=== PATIENT | female | born 1955 | race Caucasian/White ===

== ENCOUNTER 2019-09-15 16:03 | Inpatient (IN) | payer MEDICARE, OTHER ==
[~2019-09-15] VITALS: Ht 157.5 cm; Wt 121.2 kg
[2019-09-15 16:26] LABS: BASO % 0.5 % (0.0-2.0); EOS # 0.2 (0.0-0.7); EOS % 2.9 % (0-4.0); GRAN % 74.9 % (42.2-75.2); LYMPH # 1.1 (1.2-3.4); LYMPH % 14.1 % (20.0-51.0); MEAN CELL VOLUME 83 fl (80.0-100.0); MEAN CORPUSCULAR HGB CONC 31 g/dl (33.0-37.0); MEAN PLATELET VOLUME 9.2 fl (7.4-10.4); MONO # 0.6 (0.1-0.6); PLATELET COUNT 187 K/mm3 (130-400); RED BLOOD COUNT 3.85 M/mm3 (4.10-5.30); REDCELL DISTRIBUTION WIDTH-CV 15.7 % (11.5-14.5)
[2019-09-15] MEDS ORDERED: GLUCOPHAGE1000 MG PO (16:37)
[2019-09-15 16:38] LABS: ALBUMIN 3.7 gm/dL (3.5-5.0); BILIRUBIN,TOTAL 0.3 mg/dL (0.0-1.0); CALCIUM 8.8 mg/dL (8.4-10.2); CREATININE, serum 2.72 (0.52-1.25); POTASSIUM 3.4 mmol/L (3.4-5.0); TOTAL PROTEIN 7.2 gm/dL (6.4-8.2)
[2019-09-15] MEDS ORDERED: NORVASC 10MG10 MG PO (16:38)
[2019-09-15] MEDS ORDERED: PRINZIDE 12.5 M1 TA1 (16:38)
[2019-09-15] MEDS ORDERED: PROZAC 20MG20 MG PO (16:39)
[2019-09-15] MEDS ORDERED: PRILOSEC 20MG20 MG PO (16:39)
[2019-09-15] MEDS ORDERED: ASPIRIN 81M81 MG/TA2 PO (16:39)
[2019-09-15] MEDS ORDERED: NOVOLIN N100 U/ML (16:40)
[2019-09-15] MEDS ORDERED: NOVOLIN R100 U/ML (16:40)
[2019-09-15 16:46] LABS: HEMATOCRIT 32.1 % (37.0-47.0); HEMOGLOBIN 9.8 g/dl (12.5-16.0); MEAN CORPUSCULAR HEMOGLOBIN 25 pg (27.0-31.0)
[2019-09-15 16:49] LABS: TROPONIN-I 0.033 ng/mL (0.000-0.035)
[2019-09-15 19:08] LABS: PROTHROMBIN TIME 11.4 SECONDS (9.7-12.8)
[2019-09-15 19:11] LABS: MAGNESIUM 1.9 mg/dL (1.6-2.3); PHOSPHOROUS 4.6 mg/dL (2.5-4.5)
[2019-09-15 22:10] VITALS: BP 183/77; PULSE 93; TEMP 98.2
[2019-09-15 22:44] LABS: C-REACTIVE PROTEIN 1.7 mg/dL (0.0-0.9)
[2019-09-15 22:49] VITALS: BP 174/75; PULSE 89; TEMP 98.6
[2019-09-15 22:57] LABS: TROPONIN-I 0.043 ng/mL (0.000-0.035)
[2019-09-15 23:12] LABS: THYROID STIMULATING HORMONE 4.08 uIU/mL (0.465-4.680)
[2019-09-15 23:41] VITALS: BP 163/69; PULSE 87; TEMP 98
--- NOTE | 2019-09-16 00:54 | NUR ---
Patient arrived to the floor at 2100. Admission assessment and med rec completed. Potassium replacement completed by effer-k per orders. Patient requested something to eat and a sandwich box was provided after blood glucose was taken. UA collected and sent to lab. Blood pressure noted to be 174/75 with heart rate of 89 at about 2200. Critical troponin called to this nurse at 0.043 and this was relayed to Grace Morillo APRN. She stated this was expected and to given hydralazine for high blood pressure. This was given. Blood pressure after medication was 163/69. Patient denies pain. Currently sitting on the edge of the bed watching a program on her phone. Denies any further needs. Will continue to monitor.
[2019-09-16 02:36] LABS: POTASSIUM 3.2 mmol/L (3.4-5.0)
[2019-09-16 02:38] LABS: MUCOUS Present /lpf; PH 5 (5-8); SQUAMOUS EPITHELIAL 0-2 /hpf; URINE APPEARANCE Clear; URINE BACTERIA None Seen /hpf; URINE BILIRUBIN Negative (NEGATIVE); URINE BLOOD 1+ (NEGATIVE); URINE COLOR Straw; URINE GLUCOSE 1+ (NEGATIVE); URINE KETONE Negative (NEGATIVE); URINE LEUKOCYTE ESTERASE Negative (NEGATIVE); URINE NITRATE Negative (NEGATIVE); URINE PROTEIN(semi-quant) 2+ (NEGATIVE); URINE RBC 0-2 /hpf; URINE UROBILINOGEN Negative (NEGATIVE)
[2019-09-16 02:39] LABS: COLLECTION METHOD CLEAN CATCH
[2019-09-16 02:53] LABS: TROPONIN-I 0.036 ng/mL (0.000-0.035)
[2019-09-16 04:06] VITALS: BP 148/76; PULSE 83; TEMP 97.5
--- NOTE | 2019-09-16 08:00 | NUR ---
Assessment complete. Pt sitting up on side of bed, A&O x 4. Breath sounds CTAB, slightly diminished to bases bilat. BS active x 4. Pt denies pain at this time. Saline lock IV to left inner wrist without s/s of complications. 3+ edema to bilat lower ext with small abrasion to right guerra. No further needs reported. Call light in reach.
[2019-09-16 08:26] VITALS: BP 155/72; PULSE 87; TEMP 97.9
[2019-09-16 08:29] LABS: BASO % 0.4 % (0.0-2.0); EOS # 0.2 (0.0-0.7); EOS % 2.9 % (0-4.0); GRAN # 5.1 (1.4-6.5); GRAN % 75.7 % (42.2-75.2); LYMPH # 0.9 (1.2-3.4); LYMPH % 12.5 % (20.0-51.0); MEAN CELL VOLUME 83 fl (80.0-100.0); MEAN CORPUSCULAR HGB CONC 31 g/dl (33.0-37.0); MEAN PLATELET VOLUME 9.7 fl (7.4-10.4); MONO # 0.5 (0.1-0.6); MONO % 7.8 % (1.7-9.3); PLATELET COUNT 161 K/mm3 (130-400); RED BLOOD COUNT 3.11 M/mm3 (4.10-5.30); REDCELL DISTRIBUTION WIDTH-CV 15.9 % (11.5-14.5)
[2019-09-16 08:32] LABS: HEMATOCRIT 25.9 % (37.0-47.0); HEMOGLOBIN 7.9 g/dl (12.5-16.0); MEAN CORPUSCULAR HEMOGLOBIN 25 pg (27.0-31.0)
[2019-09-16 08:41] LABS: CALCIUM 8.1 mg/dL (8.4-10.2); CHOLESTEROL RISK RATIO 4.3; CREATININE, serum 2.85 (0.52-1.25); POTASSIUM 3.3 mmol/L (3.4-5.0)
--- NOTE | 2019-09-16 09:18 | NUR ---
Initial visit; Patient thanked Manager Van forlooking in on her and offering God's blessings. Patient would like Manager Van to change her denominational affiliation on hospital census, Manager Van will do so.
[2019-09-16 11:53] VITALS: BP 141/48; PULSE 84; TEMP 98.3
--- NOTE | 2019-09-16 15:31 | NUR ---
hide worker met with patient to discuss discharge planning. Patient states [place] from [place] of [place] and now live with her son, Daivd Smith #[phone] and his in [place], [place]. Both son and daughter in law are on disability and have cars. Patient confirms that she does not have a primary care physician and is open to [facility] in [place]. Worker made an appointment for 09/23/2019 at 4:15pm and gave information to patient. Patient has standard Medicare A&B and has applied for [employer]. Worker arranged for Jourdan to meet with patient and assist with determining where the application is at in process. Patient states she had surgery in March 26 at [facility] to remove a cancerous tumor. Patient states she has prescription coverage to start on Oct 09. Worker advised that [employer] has a prescription assistance program she can access once she is established. Patient states she utilizes [facility] pharmacy in [place] for all of her medications as her insuling is cheaper. Patient states she has been told that she has congestive heart failure. Worker collaborated with dietition, who will provide heart failure written booklet. Case management will continue to follow and assist as needed with securing a safe discharge plan.
[2019-09-16 16:29] VITALS: BP 157/65; PULSE 76; TEMP 97.8
--- NOTE | 2019-09-16 17:30 | NUR ---
Pt sitting up on side of bed, uneventful shift today. Had an episode of feeling tired, blood sugar slightly higher before lunch. No further needs reported. Call light in reach.
--- NOTE | 2019-09-16 20:00 | NUR ---
Report received. Assumed care for cage shift manager. Assessment complete. A&Ox3. VS stable. Plan of care discussed for this shift to include HS meds/bedside glucose/fluid restriction. States she is only short of breath with activity. Denies nausea/pain. INT to left inner wrist flushes without difficulty. Denies needs. Call light in reach/bed in low/wheels locked. Will monitor.
[2019-09-16 20:13] VITALS: BP 146/59; PULSE 85; TEMP 98.5
[2019-09-17] VITALS (7 sets, daily range): BP systolic 146–164; BP diastolic 60–77; PULSE 74–87; TEMP 97.6–98.8
[2019-09-17 06:29] LABS: BASO % 0.4 % (0.0-2.0); EOS # 0.2 (0.0-0.7); EOS % 3.3 % (0-4.0); GRAN # 4.9 (1.4-6.5); GRAN % 73.1 % (42.2-75.2); MEAN CELL VOLUME 84 fl (80.0-100.0); MEAN CORPUSCULAR HGB CONC 31 g/dl (33.0-37.0); MEAN PLATELET VOLUME 9.6 fl (7.4-10.4); MONO # 0.5 (0.1-0.6); MONO % 7.6 % (1.7-9.3); PLATELET COUNT 180 K/mm3 (130-400); RED BLOOD COUNT 3.07 M/mm3 (4.10-5.30); REDCELL DISTRIBUTION WIDTH-CV 15.9 % (11.5-14.5)
[2019-09-17 06:31] LABS: HEMATOCRIT 25.8 % (37.0-47.0); HEMOGLOBIN 7.9 g/dl (12.5-16.0); MEAN CORPUSCULAR HEMOGLOBIN 26 pg (27.0-31.0)
[2019-09-17 06:50] LABS: CALCIUM 8.3 mg/dL (8.4-10.2); CREATININE, serum 3.03 (0.52-1.25); POTASSIUM 3.4 mmol/L (3.4-5.0)
--- NOTE | 2019-09-17 07:30 | NUR ---
Seen patient awake in bed. With INT on left wrist. Patient denies pain. Will continue to monitor.
--- NOTE | 2019-09-17 13:00 | NUR ---
Tried to flush INT with saline but patient verbalizes pain. Tried to find a vein but patient is edematous. Called Conrado, housekeeper supervisor, but states try to contact Danni. I was able to reach out to Danni but she said she will just do PICC line to ICU and head and check the patient after. Called Tonja to try insert IV, she was able to try but failed. Danni went up and was able to insert G22 line on her left wrist. Patient states she felt better after.
--- NOTE | 2019-09-17 17:04 | NUR ---
Comb Winder faxed clinical information to [facility]. SW met with patient to review PT/OT recommendation for Home Health. SW provided Medicare.gov list of agencies that serve [place]. SW will follow up for patient choice.
--- NOTE | 2019-09-17 18:28 | NUR ---
Patient is eating dinner at chair. Denies any pain. Will endorse to slot shift supervisor nurse.
[2019-09-17 19:02] LABS: CALCIUM 8.2 mg/dL (8.4-10.2); CREATININE, serum 3.04 (0.52-1.25); MAGNESIUM 1.9 mg/dL (1.6-2.3); POTASSIUM 3.5 mmol/L (3.4-5.0)
[2019-09-17 19:45] LABS: URINE PROTEIN:CREAT RATIO 10.91 (0.00-0.14)
--- NOTE | 2019-09-17 20:15 | NUR ---
Initial shift assessment done- does have just a slight headache-will give tylenol with night meds, Up in chair for a few hours- Up to bathroom- understands we need good intake and output, Bumex drip at 5cc/hr/0.5mg /hr, tele on, understands on fluid restiction
[2019-09-18 04:07] VITALS: BP 156/68; PULSE 85; TEMP 98.6
--- NOTE | 2019-09-18 06:24 | NUR ---
Quiet night- Up to bathroom 3 times for a toatl of 2049cc of urine out- bumex drip continues at 5cc/hr
[2019-09-18 06:28] LABS: BASO % 0.4 % (0.0-2.0); EOS # 0.2 (0.0-0.7); GRAN # 4.8 (1.4-6.5); GRAN % 71.2 % (42.2-75.2); LYMPH # 1.1 (1.2-3.4); MEAN CELL VOLUME 84 fl (80.0-100.0); MEAN CORPUSCULAR HGB CONC 31 g/dl (33.0-37.0); MEAN PLATELET VOLUME 9.7 fl (7.4-10.4); MONO # 0.6 (0.1-0.6); PLATELET COUNT 172 K/mm3 (130-400); RED BLOOD COUNT 3.05 M/mm3 (4.10-5.30); REDCELL DISTRIBUTION WIDTH-CV 15.9 % (11.5-14.5)
[2019-09-18 06:37] LABS: CALCIUM 8.1 mg/dL (8.4-10.2); CREATININE, serum 3.09 (0.52-1.25); MAGNESIUM 1.9 mg/dL (1.6-2.3); POTASSIUM 3.1 mmol/L (3.4-5.0)
[2019-09-18 06:51] LABS: HEMATOCRIT 25.6 % (37.0-47.0); HEMOGLOBIN 7.8 g/dl (12.5-16.0); MEAN CORPUSCULAR HEMOGLOBIN 26 pg (27.0-31.0)
--- NOTE | 2019-09-18 07:30 | NUR ---
Received report from sink maker nurse. Seen patient awake on bed. With IVF on left wrist. No inflammation or redness noted. Patient denies any pain. With Bumex drip on 5ml/hr.
[2019-09-18 09:08] VITALS: BP 153/63; PULSE 79; TEMP 98.8
--- NOTE | 2019-09-18 10:45 | NUR ---
Effervescent given to patient for K=3.1. Patient able to urinate very well. Denies any complains. Still on fluid restriction of 1250ml.
[2019-09-18 12:15] VITALS: BP 174/81; PULSE 78; TEMP 98.3
[2019-09-18 16:57] VITALS: BP 178/77; PULSE 79; TEMP 98.1
--- NOTE | 2019-09-18 20:30 | NUR ---
Initial shift assessment done- denies pain--main request is that she would like a shower- states has requested a shower for the past 2 day-- did tape up IV and helped pt get in the shower---much appreciated- feels better!-- Did have to restart IV due to just leaking- restarted to right wrist 22g-- continues with Bumex drip at 5cc/hr. Tele on. On potassium protocol- given dose of po potassium and will recheck potassium lab level at 2400 per protocol
[2019-09-18 20:37] VITALS: BP 154/71; PULSE 77; TEMP 98.6
--- NOTE | 2019-09-18 22:00 | NUR ---
24 HR URINE STARTED AT THIS TIME FOR URINE PROTEIN ELECTROPHORESIS-
[2019-09-18 23:53] VITALS: BP 144/62; PULSE 86; TEMP 97.4
--- NOTE | 2019-09-19 01:30 | NUR ---
Repeat potassium the same at 3.4,, will give another dose of 20meq p.o potassium per protocol- will recheck with am labs. Denies pain- no requests.
[2019-09-19 04:09] VITALS: BP 157/69; PULSE 82; TEMP 98.2
--- NOTE | 2019-09-19 05:57 | NUR ---
Did give a snack this morning- states shes hungry today, did sleep for a few hours tonight- 24 hr urine in progress, MONET
[2019-09-19 07:41] VITALS: BP 158/78; PULSE 81; TEMP 98.4
[2019-09-19 07:55] LABS: BASO % 0.3 % (0.0-2.0); EOS # 0.2 (0.0-0.7); EOS % 2.7 % (0-4.0); GRAN # 5.5 (1.4-6.5); GRAN % 74.7 % (42.2-75.2); LYMPH % 13.7 % (20.0-51.0); MEAN CELL VOLUME 84 fl (80.0-100.0); MEAN CORPUSCULAR HGB CONC 30 g/dl (33.0-37.0); MEAN PLATELET VOLUME 10.1 fl (7.4-10.4); MONO # 0.6 (0.1-0.6); MONO % 8.2 % (1.7-9.3); PLATELET COUNT 183 K/mm3 (130-400); RED BLOOD COUNT 3.21 M/mm3 (4.10-5.30); REDCELL DISTRIBUTION WIDTH-CV 15.7 % (11.5-14.5)
--- NOTE | 2019-09-19 08:00 | NUR ---
Patient is up in recliner watching videos on cellphone. Complains of slight headache. PRN apap administered. Call light and personal items are within reach.
[2019-09-19 08:01] LABS: HEMATOCRIT 27.1 % (37.0-47.0); HEMOGLOBIN 8.1 g/dl (12.5-16.0); MEAN CORPUSCULAR HEMOGLOBIN 25 pg (27.0-31.0)
[2019-09-19 08:13] LABS: CREATININE, serum 3.1 (0.52-1.25); MAGNESIUM 1.9 mg/dL (1.6-2.3); POTASSIUM 3.2 mmol/L (3.4-5.0)
[2019-09-19 11:21] VITALS: BP 153/65; PULSE 73; TEMP 97.9
[2019-09-19 17:20] VITALS: BP 135/57; PULSE 72; TEMP 97.8
--- NOTE | 2019-09-19 19:29 | NUR ---
Patient is sitting up in recliner with legs elevated watching TV. Denies pain. Call light and personal items are within reach.
--- NOTE | 2019-09-19 20:30 | NUR ---
Shift assessment complete. Pt resting in bed, awake, a&o, cooperative c cares. Pt denies pain or any other c/o. IV patent; bumex gtt per orders. Tele in place. Pt denies needs. Call light in reach, will continue to monitor.
[2019-09-19 22:22] VITALS: BP 147/49; PULSE 73; TEMP 97.9
[2019-09-20 05:07] VITALS: BP 150/73; PULSE 71; TEMP 97.7
[2019-09-20 07:53] VITALS: BP 142/57; PULSE 76; TEMP 98
[2019-09-20 08:40] LABS: BASO # 0.1 (0.0-0.2); BASO % 0.8 % (0.0-2.0); EOS # 0.2 (0.0-0.7); EOS % 2.8 % (0-4.0); GRAN # 5.5 (1.4-6.5); GRAN % 69.9 % (42.2-75.2); LYMPH # 1.3 (1.2-3.4); LYMPH % 17.1 % (20.0-51.0); MEAN CELL VOLUME 85 fl (80.0-100.0); MEAN CORPUSCULAR HGB CONC 29 g/dl (33.0-37.0); MONO # 0.7 (0.1-0.6); MONO % 8.9 % (1.7-9.3); PLATELET COUNT 218 K/mm3 (130-400); RED BLOOD COUNT 3.59 M/mm3 (4.10-5.30); REDCELL DISTRIBUTION WIDTH-CV 15.7 % (11.5-14.5)
[2019-09-20 08:54] LABS: POTASSIUM 3.6 mmol/L (3.4-5.0)
[2019-09-20 09:03] LABS: CALCIUM 8.5 mg/dL (8.4-10.2); CREATININE, serum 3.5 (0.52-1.25)
[2019-09-20 09:23] LABS: HEMATOCRIT 30.5 % (37.0-47.0); HEMOGLOBIN 8.9 g/dl (12.5-16.0); MEAN CORPUSCULAR HEMOGLOBIN 25 pg (27.0-31.0)
[2019-09-20 12:04] VITALS: BP 154/65; PULSE 78; TEMP 98.3
--- NOTE | 2019-09-20 15:48 | NUR ---
Superintendent Job met with patient to follow up on Home Health recommendation. Patient chose [facility]. SW contacted [facility] and faxed a referral. SW to continue to follow.
[2019-09-20 16:13] VITALS: BP 152/68; PULSE 72; TEMP 98.3
[2019-09-20 19:45] VITALS: BP 149/50; PULSE 72; TEMP 98.1
--- NOTE | 2019-09-20 19:51 | NUR ---
Patient resting in bed, report given to oncoming shift
--- NOTE | 2019-09-20 20:00 | NUR ---
Shift assessment complete. Pt resting in bed, awake, a&o, cooperative c cares. Pt denies pain or any other c/o at this time. IV patent, bumex gtt infusing per orders. Tele in place. Pt denies needs. Call light in reach, will continue to monitor.
[2019-09-20 23:49] VITALS: BP 134/59; PULSE 78; TEMP 98.4
[2019-09-21 05:00] VITALS: BP 137/52; PULSE 81; TEMP 97.6
[2019-09-21 08:06] LABS: BASO % 0.6 % (0.0-2.0); EOS # 0.2 (0.0-0.7); EOS % 2.7 % (0-4.0); GRAN # 4.9 (1.4-6.5); GRAN % 68.4 % (42.2-75.2); LYMPH # 1.3 (1.2-3.4); LYMPH % 18.3 % (20.0-51.0); MEAN CELL VOLUME 85 fl (80.0-100.0); MEAN CORPUSCULAR HGB CONC 30 g/dl (33.0-37.0); MONO # 0.7 (0.1-0.6); MONO % 9.4 % (1.7-9.3); PLATELET COUNT 190 K/mm3 (130-400); RED BLOOD COUNT 3.29 M/mm3 (4.10-5.30); REDCELL DISTRIBUTION WIDTH-CV 15.4 % (11.5-14.5)
[2019-09-21 08:08] VITALS: BP 129/51; PULSE 71; TEMP 98.4
[2019-09-21 08:08] LABS: HEMATOCRIT 27.9 % (37.0-47.0); HEMOGLOBIN 8.4 g/dl (12.5-16.0); MEAN CORPUSCULAR HEMOGLOBIN 26 pg (27.0-31.0)
[2019-09-21 08:16] LABS: CALCIUM 8.3 mg/dL (8.4-10.2); CREATININE, serum 3.45 (0.52-1.25); POTASSIUM 3.5 mmol/L (3.4-5.0)
[2019-09-21 09:52] LABS: URINE HOURS (UPEP) 24 h (())
--- NOTE | 2019-09-21 11:30 | NUR ---
ASSESSMENT COMPLETE. PATIENT SITTING AT BEDSIDE FOR BREAKFAST. NO COMPLAINTS OF PAIN OR DISCOMFORT WERE REPORTED. IV SITE IS CD&I, FLUSHED WELL. SMALL AREA OF CELLULITIS NOTED ON RIGHT MAR, PATIENT STATES THIS HAS BEEN THERE A WHILE, DENIED PAIN WHEN PALPATING THE SITE. NO FURTHER NEEDS WERE EXPRESSED FROM THE PATIENT. CALL LIGHT IS IN PLACE.
[2019-09-21 11:41] LABS: URIN CONCENTRATION 24HR (UPEP) 230 mg/dL (()); URINE PROTEIN 24HR (UPEP) 8625 mg/24 h (<229)
[2019-09-21 12:52] VITALS: BP 133/64; PULSE 74; TEMP 98.4
[2019-09-21] MEDS ORDERED: CEPHALEXIN500 M1 PO (13:35)
[2019-09-21] MEDS ORDERED: PRILOSEC 20MG20 MG PO (13:36)
[2019-09-21] MEDS ORDERED: ASPI325T6 PO (13:36)
[2019-09-21] MEDS ORDERED: COZAAR 25MG25 MG/TAB PO (13:36)
[2019-09-21] MEDS ORDERED: PROZAC 20MG20 MG PO (13:36)
[2019-09-21] MEDS ORDERED: BUMEX2 MG PO (13:37)
[2019-09-21] MEDS ORDERED: K-TAB20 PO (13:38)
[2019-09-21] MEDS ORDERED: TOPROL XL 25MG25 MG PO (13:39)
--- NOTE | 2019-09-21 15:14 | NUR ---
Gas Singer notified that patient ready to discharge today. SW met with patient to review discharge plan. Patient plans to return home with [facility]. SW spoke with [facility] earlier in the day and was advised they would see patient after her appointment with her new primary care provider on the . SW provided this update to patient. Patient advised her Medicare prescription plan does not begin until 10/09/2019 and will need assistance with filling her prescriptions upon discharge. MARTIR [facility] and faxed prescriptions to [facility]. MARTIR provided patient with voucher and hard copy of prescriptions. No additional needs at this time. Patient's son, Blade is picking up patient and providing her with a ride to [place], then home in [place].
--- NOTE | 2019-09-21 16:30 | NUR ---
PATIENT DISCHARGE AT THIS TIME VIA WHEELCHAIR TO CAR WITH FAMILY. DISCHARGE INSTRUCTIONS WERE DISCUSSED, NO CONCERNS WERE VOICED.
[2019-09-22 12:47] LABS: URINE A/G RATIO 24HR (UPEP) 1.68 (()); URINE ALPHA 1 GLOB 24HR (UPEP) 7 % (()); URINE ALPHA 2 GLOB 24HR (UPEP) 7 % (()); URINE BETA GLOB 24HR (UPEP) 12 % (()); URINE GAMMA GLOB 24HR (UPEP) 11 % (())
[2019-09-22 12:47] LABS: A/G RATIO (PEP) 0.75 (()); BETA GLOBULINS (PEP) 0.9 g/dL (0.7-1.2)
[2019-09-28 07:18] LABS: URINE M SPIKE 1 24HR (UPEP) SEE PCI FOR RESULTS; URINE M SPIKE 2 24HR (UPEP) SEE PCI FOR RESULTS
== END 2019-09-21 17:05 | disposition home health service (06) | DRG 280 ==
LOC: COL.ER 16:03 → MEDICAL 19:37
PROVIDERS: Emergency Medicine; Internal Medicine Nephrology; Nurse Practitioner Family; Physician Assistant; ADMIT Student in an Organized Health Care Education/Training Program
DX: I13.0 Hypertensive heart and chronic kidney disease with heart failure and stage 1 through stage 4 chronic kidney disease, or unspecified chronic kidney disease (principal); I50.33 Acute on chronic diastolic (congestive) heart failure; I21.A1 Myocardial infarction type 2; C68.0 Malignant neoplasm of urethra; J90 Pleural effusion, not elsewhere classified; N17.9 Acute kidney failure, unspecified; L03.115 Cellulitis of right lower limb; L03.116 Cellulitis of left lower limb; I45.10 Unspecified right bundle-branch block; N18.9 Chronic kidney disease, unspecified; E87.6 Hypokalemia; E11.22 Type 2 diabetes mellitus with diabetic chronic kidney disease; D63.1 Anemia in chronic kidney disease; E66.9 Obesity, unspecified; I34.0 Nonrheumatic mitral (valve) insufficiency; Z92.21 Personal history of antineoplastic chemotherapy; Z79.82 Long term (current) use of aspirin; Z79.4 Long term (current) use of insulin; Z90.710 Acquired absence of both cervix and uterus; Z85.828 Personal history of other malignant neoplasm of skin; Z87.891 Personal history of nicotine dependence; Z88.1 Allergy status to other antibiotic agents
CPT/HCPCS: 99223-AI; 99231-AI; 99232-AI; 99239; J0360; J1644; J1815; J1940

== ENCOUNTER → 2019-10-18 | Outpatient (CLI) | payer MEDICARE ==
[~2019-10-18] MED LIST: ASPI325T6 PO; ASPIRIN 81M81 MG/TA2 PO; BUMEX2 MG PO; CEPHALEXIN500 M1 PO; COZAAR 25MG25 MG/TAB PO; GLUCOPHAGE1000 MG PO; K-TAB20 PO; NORVASC 10MG10 MG PO; NOVOLIN N100 U/ML; NOVOLIN R100 U/ML; PRILOSEC 20MG20 MG PO; PRINZIDE 12.5 M1 TA1; PROZAC 20MG20 MG PO; TOPROL XL 25MG25 MG PO
[2019-10-18 15:12] LABS: ALBUMIN 3.1 gm/dL (3.5-5.0); BILIRUBIN,TOTAL 0.2 mg/dL (0.0-1.0); CALCIUM 8.6 mg/dL (8.4-10.2); CREATININE, serum 3.17 (0.52-1.25); POTASSIUM 3.8 mmol/L (3.4-5.0)
== END ==
LOC: ZCOL.LAB 14:30 → ZLAB.STJ 14:30
PROVIDERS: Internal Medicine Geriatric Medicine
DX: I50.20 Unspecified systolic (congestive) heart failure (principal)

== ENCOUNTER → 2019-10-25 | Outpatient (CLI) | payer MEDICARE, MEDICAID ==
[2019-10-25 19:52] LABS: BASO % 0.2 % (0.0-2.0); EOS # 0.2 (0.0-0.7); EOS % 2.7 % (0-4.0); GRAN # 6.7 (1.4-6.5); LYMPH # 1.3 (1.2-3.4); LYMPH % 14.9 % (20.0-51.0); MEAN CELL VOLUME 87 fl (80.0-100.0); MEAN CORPUSCULAR HGB CONC 29 g/dl (33.0-37.0); MEAN PLATELET VOLUME 10.8 fl (7.4-10.4); MONO # 0.6 (0.1-0.6); MONO % 6.5 % (1.7-9.3); PLATELET COUNT 175 K/mm3 (130-400); RED BLOOD COUNT 3.47 M/mm3 (4.10-5.30); REDCELL DISTRIBUTION WIDTH-CV 14.5 % (11.5-14.5)
[2019-10-25 19:57] LABS: HEMATOCRIT 30.1 % (37.0-47.0); HEMOGLOBIN 8.8 g/dl (12.5-16.0); MEAN CORPUSCULAR HEMOGLOBIN 25 pg (27.0-31.0)
[2019-10-25 20:15] LABS: ALBUMIN 3.4 gm/dL (3.5-5.0); BILIRUBIN,TOTAL 0.2 mg/dL (0.0-1.0); CALCIUM 8.8 mg/dL (8.4-10.2); CREATININE, serum 3.36 (0.52-1.25); POTASSIUM 3.7 mmol/L (3.4-5.0); TOTAL PROTEIN 6.8 gm/dL (6.4-8.2)
== END ==
LOC: ZCOL.LAB 15:45
PROVIDERS: Internal Medicine Geriatric Medicine
DX: R79.89 Other specified abnormal findings of blood chemistry (principal); R68.89 Other general symptoms and signs

== ENCOUNTER → 2019-11-03 | Outpatient (CLI) | payer MEDICARE, MEDICAID ==
[2019-11-03 13:07] LABS: BASO % 0.4 % (0.0-2.0); EOS # 0.3 (0.0-0.7); EOS % 3.4 % (0-4.0); GRAN # 5.7 (1.4-6.5); GRAN % 69.8 % (42.2-75.2); LYMPH # 1.5 (1.2-3.4); LYMPH % 17.7 % (20.0-51.0); MEAN CELL VOLUME 85 fl (80.0-100.0); MEAN CORPUSCULAR HGB CONC 29 g/dl (33.0-37.0); MEAN PLATELET VOLUME 10.7 fl (7.4-10.4); MONO # 0.7 (0.1-0.6); MONO % 8.1 % (1.7-9.3); PLATELET COUNT 165 K/mm3 (130-400); RED BLOOD COUNT 3.66 M/mm3 (4.10-5.30); REDCELL DISTRIBUTION WIDTH-CV 14.4 % (11.5-14.5)
[2019-11-03 13:09] LABS: HEMATOCRIT 31.2 % (37.0-47.0); HEMOGLOBIN 9.1 g/dl (12.5-16.0); MEAN CORPUSCULAR HEMOGLOBIN 25 pg (27.0-31.0)
[2019-11-03 13:13] LABS: ALBUMIN 3.5 gm/dL (3.5-5.0); BILIRUBIN,TOTAL 0.1 mg/dL (0.0-1.0); CALCIUM 8.9 mg/dL (8.4-10.2); CREATININE, serum 3.31 (0.52-1.25)
== END ==
LOC: ZCOL.LAB 12:32
PROVIDERS: Family Medicine
DX: Z01.89 Encounter for other specified special examinations (principal)

== ENCOUNTER → 2019-11-08 | Outpatient (CLI) | payer MEDICARE, MEDICAID ==
[~2019-11-08] MED LIST changes: +APRESOLINE 25MG25 MG PO; +BUMEX 1MG TA1 MG/TA1 PO; +CATAPRES 0.1MG0.1 MG PO; +CATAPRES0.2 MG PO; +COREG 6.256.25 MG/TA PO; +DULCOLAX STOOL100 MG PO; +FERROUS SU325 MG/TAB PO; +GLUCAGEN1 MG IM; +MIRALAX PA17 GM/Dose PO; +NITROSTAT0.4 MG/TAB SL; +NYAMYC100000 U/G TP; +TYLENOL 325MG325 MG PO; +ZAROXOLYN 2.52.5 MG PO
[2019-11-08 16:47] LABS: ALBUMIN 3.6 gm/dL (3.5-5.0); BILIRUBIN,TOTAL 0.3 mg/dL (0.0-1.0); CALCIUM 8.7 mg/dL (8.4-10.2); CREATININE, serum 3.19 (0.52-1.25)
[2019-11-08 16:55] LABS: BASO % 0.4 % (0.0-2.0); EOS # 0.2 (0.0-0.7); EOS % 1.9 % (0-4.0); GRAN # 6.9 (1.4-6.5); GRAN % 76.6 % (42.2-75.2); LYMPH # 1.2 (1.2-3.4); LYMPH % 12.8 % (20.0-51.0); MEAN CELL VOLUME 85 fl (80.0-100.0); MEAN CORPUSCULAR HGB CONC 30 g/dl (33.0-37.0); MEAN PLATELET VOLUME 11.5 fl (7.4-10.4); MONO # 0.7 (0.1-0.6); MONO % 7.5 % (1.7-9.3); PLATELET COUNT 199 K/mm3 (130-400); RED BLOOD COUNT 3.26 M/mm3 (4.10-5.30); REDCELL DISTRIBUTION WIDTH-CV 14.2 % (11.5-14.5)
[2019-11-08 17:01] LABS: HEMATOCRIT 27.8 % (37.0-47.0); HEMOGLOBIN 8.2 g/dl (12.5-16.0); MEAN CORPUSCULAR HEMOGLOBIN 25 pg (27.0-31.0)
== END ==
LOC: ZLAB.STJ 13:25
PROVIDERS: Internal Medicine Geriatric Medicine
DX: R68.89 Other general symptoms and signs (principal)

== ENCOUNTER 2019-11-09 19:21 | Inpatient (IN) | payer MEDICARE, MEDICAID ==
[~2019-11-09] VITALS: Ht 157.5 cm; Wt 112.4 kg
[~2019-11-09 19:21] MED LIST changes: -APRESOLINE 25MG25 MG PO; -BUMEX 1MG TA1 MG/TA1 PO; -CATAPRES 0.1MG0.1 MG PO; -CATAPRES0.2 MG PO; -COREG 6.256.25 MG/TA PO; -DULCOLAX STOOL100 MG PO; -FERROUS SU325 MG/TAB PO; -GLUCAGEN1 MG IM; -MIRALAX PA17 GM/Dose PO; -NITROSTAT0.4 MG/TAB SL; -NYAMYC100000 U/G TP; -TYLENOL 325MG325 MG PO; -ZAROXOLYN 2.52.5 MG PO
--- NOTE | 2019-11-09 19:32 | NUR ---
Pt arrived to medical unit room 311 via wc.
[2019-11-09] MEDS ORDERED: TYLENOL 325MG325 MG PO (22:01)
[2019-11-09] MEDS ORDERED: DULCOLAX STOOL100 MG PO (22:02)
[2019-11-09] MEDS ORDERED: FERROUS SU325 MG/TAB PO (22:03)
[2019-11-09] MEDS ORDERED: GLUCAGEN1 MG IM (22:05)
[2019-11-09] MEDS ORDERED: NORVASC 10MG10 MG PO (22:08)
[2019-11-09] MEDS ORDERED: NITROSTAT0.4 MG/TAB SL (22:08)
[2019-11-09] MEDS ORDERED: BUMEX 1MG TA1 MG/TA1 PO (22:09)
[2019-11-09 22:10] VITALS: BP 138/39; PULSE 76; TEMP 97.9
[2019-11-09] MEDS ORDERED: CATAPRES 0.1MG0.1 MG PO (22:10)
[2019-11-09] MEDS ORDERED: CATAPRES0.2 MG PO (22:10)
[2019-11-09] MEDS ORDERED: APRESOLINE 25MG25 MG PO (22:11)
[2019-11-09] MEDS ORDERED: COREG 6.256.25 MG/TA PO (22:11)
[2019-11-09] MEDS ORDERED: ZAROXOLYN 2.52.5 MG PO (22:12)
[2019-11-09] MEDS ORDERED: NYAMYC100000 U/G TP (22:14)
[2019-11-09] MEDS ORDERED: MIRALAX PA17 GM/Dose PO (22:15)
[2019-11-09 23:24] VITALS: BP 136/56; PULSE 75; TEMP 98.6
--- NOTE | 2019-11-10 01:03 | NUR ---
Assessment complete. Med rec completed. Alert and oriented. Independent. Ambulatory Denies any pain or discomfort at this time. Has dressing in place to RLE, pt states she is being treated for cellulitis. BLE edematous, 3+. 20G IV started to RFA with positive blood return, flushed well, dressing in place, pt tolerated well. Meds administered. On 2LO2NC. Slight redness observed to bilateral lower abdominal folds. Needs met. Call light within reach. Pt understands fluid restriciton of 60ounces/day and monitoring of I/O's.
--- NOTE | 2019-11-10 05:21 | NUR ---
Pt made no complaints during this shift. Monitored I/O's. Bumex gtt infusing at 5ml/hr. Needs met. Call light within reach.
[2019-11-10 05:59] VITALS: BP 121/48; PULSE 71; TEMP 98.1
[2019-11-10 06:04] LABS: BASO % 0.4 % (0.0-2.0); EOS # 0.2 (0.0-0.7); EOS % 2.4 % (0-4.0); GRAN # 5.5 (1.4-6.5); GRAN % 71.4 % (42.2-75.2); LYMPH # 1.2 (1.2-3.4); LYMPH % 16.1 % (20.0-51.0); MEAN CELL VOLUME 84 fl (80.0-100.0); MEAN CORPUSCULAR HGB CONC 30 g/dl (33.0-37.0); MEAN PLATELET VOLUME 10.8 fl (7.4-10.4); MONO # 0.7 (0.1-0.6); PLATELET COUNT 154 K/mm3 (130-400); RED BLOOD COUNT 2.91 M/mm3 (4.10-5.30); REDCELL DISTRIBUTION WIDTH-CV 14.1 % (11.5-14.5)
[2019-11-10 06:13] LABS: HEMATOCRIT 24.4 % (37.0-47.0); HEMOGLOBIN 7.3 g/dl (12.5-16.0); MEAN CORPUSCULAR HEMOGLOBIN 25 pg (27.0-31.0)
[2019-11-10 06:15] LABS: ALBUMIN 3.2 gm/dL (3.5-5.0); CALCIUM 8.3 mg/dL (8.4-10.2); CREATININE, serum 3.41 (0.52-1.25); POTASSIUM 3.2 mmol/L (3.4-5.0)
--- NOTE | 2019-11-10 06:59 | NUR ---
Report given to JAN Can.
[2019-11-10 07:52] VITALS: BP 163/67; PULSE 73; TEMP 98
[2019-11-10 11:53] VITALS: BP 123/48; BP 135/55; PULSE 58; TEMP 98.1
--- NOTE | 2019-11-10 12:32 | NUR ---
Initial visit; Patient thanked Pack Press Operator for offering spiritual care, especially prayer. Pack Press Operator will continue to look in on patient.
[2019-11-10 16:22] LABS: IRON,SERUM 23 ug/dL (35-150)
[2019-11-10 16:31] LABS: TOTAL IRON BINDING CAPACITY 215 ug/dL (265-497)
--- NOTE | 2019-11-10 16:46 | NUR ---
Corn Husk Baler met with patient to discuss discharge planning. Patient lives at [facility] and reports she has been there about three weeks. Patient states she was recently at [facility] and was then discharged to [facility]. Patient's primary care physician is Dr. Jerman Choi. Patient states she uses a walker to get around at the alf. Patient reports she plans to return to [facility] upon discharge. MARTIR presented Patient Preference form to patient who selected [facility] then provided signature. MARTIR placed form in chart. MARTIR contacted Zac at [facility] then faxed updates. MARTIR to continue to follow.
[2019-11-10 16:59] VITALS: BP 132/48; PULSE 70; TEMP 99
[2019-11-10 21:09] VITALS: BP 146/58; PULSE 66
--- NOTE | 2019-11-10 21:15 | NUR ---
Patient assessed at this time. Alert and oriented x 4, and able to make needs known. Denies having pain and discomfort at this time. Peripheral IV to right forearm. Bumex drip running per orders. Denies SOB and dypsnea. LS CTA. Respirations even and unlabored. HRR. Capillary refill less than 3 seconds. Non-tenting skin turgor. BSAx4. Abdomen soft and non-tender. 3+ edema BLE. Dressing to blisters on RLE are CDI. Has been getting up to go to the bathroom. Urine clear and yellow. Voices no questions, needs, or concerns at this time. Resting in bed with call light within reach.
[2019-11-11] VITALS (9 sets, daily range): BP systolic 126–156; BP diastolic 41–58; PULSE 62–73; TEMP 97.5–98.8
--- NOTE | 2019-11-11 05:45 | NUR ---
Patient did well throughout the night. Has denied having pain and discomfort. Dressing changed to RLE as requested. Continues on Bumex drip per orders. Voices no questions, needs, or concerns at this time. Resting in bed with call light within reach.
[2019-11-11 06:56] LABS: MEAN CELL VOLUME 84 fl (80.0-100.0); MEAN CORPUSCULAR HGB CONC 29 g/dl (33.0-37.0); MEAN PLATELET VOLUME 10.5 fl (7.4-10.4); PLATELET COUNT 172 K/mm3 (130-400); RED BLOOD COUNT 3.07 M/mm3 (4.10-5.30); REDCELL DISTRIBUTION WIDTH-CV 14.2 % (11.5-14.5)
[2019-11-11 07:05] LABS: ALBUMIN 3.4 gm/dL (3.5-5.0); CALCIUM 8.5 mg/dL (8.4-10.2); CREATININE, serum 3.51 (0.52-1.25); PHOSPHOROUS 6.8 mg/dL (2.5-4.5); POTASSIUM 3.2 mmol/L (3.4-5.0)
[2019-11-11 07:07] LABS: HEMATOCRIT 25.7 % (37.0-47.0); HEMOGLOBIN 7.5 g/dl (12.5-16.0); MEAN CORPUSCULAR HEMOGLOBIN 24 pg (27.0-31.0)
[2019-11-11 09:31] LABS: EOSINOPHIL 2 % (0-4); LYMPHOCYTE 8 % (20.0-51.0); NEUTROPHILS 84 % (42.0-75.2); PLATELET ESTIMATE NORMAL (NORMAL)
--- NOTE | 2019-11-11 13:04 | NUR ---
Follow-up visit; Patient thanked Workers Compensation Claims Supervisor for making sure she was offered Holy Communion yesterday by visiting [facility]. Workers Compensation Claims Supervisor checked to see if patient was in need of anything else before she wished her well and God's blessings.
--- NOTE | 2019-11-11 13:33 | NUR ---
chandu Can with patient care from 0700 - 1300. VS patient uneventful, have not given any pr meds. Report off to Pamella MONTOYA.
--- NOTE | 2019-11-11 13:54 | NUR ---
Primary nurse was assisted with [phone] patient care by [facility] [employer] ADN student Martha Espinoza and [facility] instructor Lashell Herrera RN-BC.
--- NOTE | 2019-11-11 19:10 | NUR ---
Received report from Pamella. Seen patient awake, lying in bed. She is alert and oriented. Not on Oxygen. With IV at right foreamr, infusing Bumex. Denies any pain. With +3 edema on BLE. On left arm restrict.
--- NOTE | 2019-11-12 01:35 | NUR ---
Checked on patient's Bumex drip. It was already empty. Checked on patient's IV site. It's leaking and a bit infiltrated. Removed IV and reinsert on her right hand with G22. Previous IV site wrapped with warm blanket and kept elevated.
[2019-11-12 03:09] VITALS: BP 134/54; PULSE 66; TEMP 97.8
--- NOTE | 2019-11-12 06:01 | NUR ---
Patient had an uneventful night. Denies any pain. Bumex drip on new IV site is infusing well. Will endorse to day shift nurse.
[2019-11-12 06:16] LABS: BASO % 0.4 % (0.0-2.0); EOS # 0.2 (0.0-0.7); EOS % 2.8 % (0-4.0); GRAN # 5.3 (1.4-6.5); GRAN % 70.9 % (42.2-75.2); LYMPH # 1.3 (1.2-3.4); LYMPH % 16.7 % (20.0-51.0); MEAN CELL VOLUME 83 fl (80.0-100.0); MEAN CORPUSCULAR HGB CONC 30 g/dl (33.0-37.0); MEAN PLATELET VOLUME 10.5 fl (7.4-10.4); MONO # 0.6 (0.1-0.6); MONO % 8.4 % (1.7-9.3); PLATELET COUNT 186 K/mm3 (130-400); RED BLOOD COUNT 3.08 M/mm3 (4.10-5.30); REDCELL DISTRIBUTION WIDTH-CV 14.1 % (11.5-14.5)
[2019-11-12 06:30] LABS: HEMATOCRIT 25.7 % (37.0-47.0); HEMOGLOBIN 7.7 g/dl (12.5-16.0); MEAN CORPUSCULAR HEMOGLOBIN 25 pg (27.0-31.0)
[2019-11-12 06:33] LABS: ALBUMIN 3.3 gm/dL (3.5-5.0); CALCIUM 8.7 mg/dL (8.4-10.2); CREATININE, serum 3.46 (0.52-1.25); PHOSPHOROUS 6.1 mg/dL (2.5-4.5); POTASSIUM 3.3 mmol/L (3.4-5.0)
[2019-11-12 07:29] VITALS: BP 151/60; PULSE 68; TEMP 97.8
--- NOTE | 2019-11-12 09:00 | NUR ---
Pt has student nurse caring for her this am. Pt is A/O x4, sitting up in bed. She denies any pain. No SOB. Pt currently has bumex infusing without complications. Monitoring I&O. No needs at this time.
--- NOTE | 2019-11-12 09:24 | NUR ---
Follow-up; Patient thanked Glue Jointer Operator for wishing her well and letting her know she is being thought of and prayed for.
--- NOTE | 2019-11-12 09:47 | NUR ---
Pt upset and crying stating she is concerned as she doesn't know what the plan is if she will end up on dialysis or not. She questions the quality of life with dialysis. Also concerned she cannot have the scans necessary for her cancer if her kidneys are not functioning properly. Empathy given and discussed with patient that we would attempt to get a better understanding of her kidney function by Dr. Phoenix today. Pt verbalized understanding and content with this.
--- NOTE | 2019-11-12 10:53 | NUR ---
Set Up Mechanic Coil Winding Machines faxed updates to Zac at [facility]. MARTIR to continue to follow.
[2019-11-12 12:00] VITALS: BP 151/63; PULSE 61; TEMP 98
--- NOTE | 2019-11-12 13:51 | NUR ---
Primary nurse was assisted with [phone] patient care by [facility] student Teresa Garcia and [facility] instructor Lashell Herrera RN-BC.
--- NOTE | 2019-11-12 15:07 | NUR ---
Business Management Specialist spoke to Dr. Phoenix who advised that tentative plan is for discharge tomorrow. MARTIR provided this update to Zac at [facility]. MARTIR to continue to follow.
[2019-11-12 16:14] VITALS: BP 164/54; PULSE 66; TEMP 98.1
--- NOTE | 2019-11-12 18:24 | NUR ---
Pt had uneventful day. Rested in bed, refused shower early in day. Bumex infusing without complications. Good UOP. No pain reported. POC discussed with patient who verbalizes understanding. Dressing changed to R foot. No needs.
[2019-11-12 20:34] VITALS: BP 149/63; PULSE 66; TEMP 98.7
--- NOTE | 2019-11-12 22:54 | NUR ---
RECIEVED REPORT FROM DAY SHIFT. UPON ASSESSMENT OF THE PATIENT SHE IS LAYING IN BED WITH NO DISTRESS. BUMEX DRIP IS RUNNING AT 3ML/HR. PATIENT HAS 3+ EDEMA IN HER LOWER EXTREMITIES. SOME WHEEZING NOTED ON THE RIGHT UPPER LOBE. HER POTASSIUM RECHECK WAS 3.5 AND ONE DOSE OF POTASSIUM WAS GIVEN TO THE PATIENT. NO OTHER COMPLAINTS AT THIS TIME.
[2019-11-13 00:39] VITALS: BP 124/43; PULSE 64; TEMP 98.2
--- NOTE | 2019-11-13 02:58 | NUR ---
BUMEX GTT WAS D/C'd AROUND 0200 AM.
[2019-11-13 04:12] VITALS: BP 128/60; PULSE 63; TEMP 97.5
--- NOTE | 2019-11-13 05:15 | NUR ---
PATIENT HAS BEEN RESTING ALL NIGHT AND GOES TO THE BATHROOM INDEPEDENTLY. PATIENT HAS GOTTEN TWO ORDERS OF POTASSIUM THROUGH THE NIGHT. PATIENT HAS NOT NEEDED ANYTHING DURING THE NIGHT. SHE HAS HER CALL LIGHT IN REACH AND CALLS IF SHE NEEDS ANYTHING.
--- NOTE | 2019-11-13 07:03 | NUR ---
report given to JAN Alexis & JAN Brunner.
[2019-11-13 07:08] LABS: BASO % 0.5 % (0.0-2.0); EOS # 0.2 (0.0-0.7); EOS % 2.5 % (0-4.0); GRAN # 5.4 (1.4-6.5); GRAN % 68.4 % (42.2-75.2); LYMPH # 1.5 (1.2-3.4); LYMPH % 19.2 % (20.0-51.0); MEAN CELL VOLUME 83 fl (80.0-100.0); MEAN CORPUSCULAR HGB CONC 30 g/dl (33.0-37.0); MEAN PLATELET VOLUME 10.6 fl (7.4-10.4); MONO # 0.7 (0.1-0.6); MONO % 8.5 % (1.7-9.3); PLATELET COUNT 194 K/mm3 (130-400); RED BLOOD COUNT 3.09 M/mm3 (4.10-5.30); REDCELL DISTRIBUTION WIDTH-CV 14.1 % (11.5-14.5)
[2019-11-13 07:17] LABS: HEMATOCRIT 25.7 % (37.0-47.0); HEMOGLOBIN 7.6 g/dl (12.5-16.0); MEAN CORPUSCULAR HEMOGLOBIN 25 pg (27.0-31.0)
[2019-11-13 07:40] LABS: ALBUMIN 3.5 gm/dL (3.5-5.0); CALCIUM 8.9 mg/dL (8.4-10.2); CREATININE, serum 3.65 (0.52-1.25); PHOSPHOROUS 5.6 mg/dL (2.5-4.5); POTASSIUM 3.5 mmol/L (3.4-5.0)
[2019-11-13 08:04] VITALS: BP 129/45; PULSE 67; TEMP 97.6
[2019-11-13 12:58] VITALS: BP 129/45; PULSE 67; TEMP 97.6
--- NOTE | 2019-11-13 14:31 | NUR ---
IV to [facility], pt wheeled out at this time by [facility] wheeled patient out at this time.
== END 2019-11-13 13:40 | DRG 291 ==
LOC: MEDICAL 19:21
PROVIDERS: ADMIT Internal Medicine Nephrology
DX: I13.0 Hypertensive heart and chronic kidney disease with heart failure and stage 1 through stage 4 chronic kidney disease, or unspecified chronic kidney disease (principal); I50.23 Acute on chronic systolic (congestive) heart failure; N18.4 Chronic kidney disease, stage 4 (severe); L03.115 Cellulitis of right lower limb; L97.919 Non-pressure chronic ulcer of unspecified part of right lower leg with unspecified severity; Z68.42 Body mass index [BMI] 45.0-49.9, adult; E11.22 Type 2 diabetes mellitus with diabetic chronic kidney disease; F32.9 Major depressive disorder, single episode, unspecified; F17.210 Nicotine dependence, cigarettes, uncomplicated; E87.6 Hypokalemia; E83.39 Other disorders of phosphorus metabolism; E66.01 Morbid (severe) obesity due to excess calories; E66.9 Obesity, unspecified; Z85.820 Personal history of malignant melanoma of skin; Z92.21 Personal history of antineoplastic chemotherapy; Z86.718 Personal history of other venous thrombosis and embolism; Z79.4 Long term (current) use of insulin
CPT/HCPCS: J1815; J2916; J7050

== ENCOUNTER 2019-11-20 01:26 | Observation (INO) | payer MEDICARE, MEDICAID ==
[~2019-11-20] VITALS: Ht 157.5 cm; Wt 104.5 kg
[2019-11-20] VITALS (472 sets, daily range): BP systolic 131–197; BP diastolic 42–86; PULSE 59–75; TEMP 97.5–98.4; O2SAT 77–100
[~2019-11-20 01:26] MED LIST changes: +APRESOLINE 25MG25 MG PO; +BUMEX 1MG TA1 MG/TA1 PO; +CATAPRES 0.1MG0.1 MG PO; +CATAPRES0.2 MG PO; +COREG 6.256.25 MG/TA PO; +DULCOLAX STOOL100 MG PO; +FERROUS SU325 MG/TAB PO; +GLUCAGEN1 MG IM; +MIRALAX PA17 GM/Dose PO; +NITROSTAT0.4 MG/TAB SL; +NYAMYC100000 U/G TP; +TYLENOL 325MG325 MG PO; +ZAROXOLYN 2.52.5 MG PO
[2019-11-20 02:13] LABS: INR 0.9 (0.8-3.0); PROTHROMBIN TIME 10.3 SECONDS (9.7-12.8)
[2019-11-20 02:29] LABS: ALBUMIN 4.1 gm/dL (3.5-5.0); BILIRUBIN,TOTAL 0.4 mg/dL (0.0-1.0); CALCIUM 9.2 mg/dL (8.4-10.2); CREATININE, serum 3.71 (0.52-1.25); POTASSIUM 3.5 mmol/L (3.4-5.0); TOTAL PROTEIN 7.9 gm/dL (6.4-8.2)
[2019-11-20 02:32] LABS: BASO # 0.1 (0.0-0.2); BASO % 0.5 % (0.0-2.0); EOS # 0.3 (0.0-0.7); EOS % 2.4 % (0-4.0); GRAN # 9.6 (1.4-6.5); GRAN % 80.7 % (42.2-75.2); LYMPH # 1.2 (1.2-3.4); LYMPH % 10.2 % (20.0-51.0); MEAN CELL VOLUME 81 fl (80.0-100.0); MEAN CORPUSCULAR HGB CONC 31 g/dl (33.0-37.0); MEAN PLATELET VOLUME 9.9 fl (7.4-10.4); MONO # 0.6 (0.1-0.6); MONO % 4.9 % (1.7-9.3); PLATELET COUNT 207 K/mm3 (130-400); RED BLOOD COUNT 3.65 M/mm3 (4.10-5.30); REDCELL DISTRIBUTION WIDTH-CV 14.1 % (11.5-14.5)
[2019-11-20 02:39] LABS: HEMATOCRIT 29.6 % (37.0-47.0); HEMOGLOBIN 9.1 g/dl (12.5-16.0); MEAN CORPUSCULAR HEMOGLOBIN 25 pg (27.0-31.0)
[2019-11-20 02:40] LABS: TROPONIN-I 0.017 ng/mL (0.000-0.035)
[2019-11-20 05:04] LABS: COLLECTION METHOD CLEAN CATCH
[2019-11-20 05:24] LABS: PH 6 (5-8); SQUAMOUS EPITHELIAL 0-2 /hpf; URINE APPEARANCE Hazy; URINE BACTERIA Rare /hpf; URINE BILIRUBIN Negative (NEGATIVE); URINE BLOOD 1+ (NEGATIVE); URINE COLOR Straw; URINE GLUCOSE 2+ (NEGATIVE); URINE KETONE Negative (NEGATIVE); URINE LEUKOCYTE ESTERASE Trace (NEGATIVE); URINE NITRATE Negative (NEGATIVE); URINE PROTEIN(semi-quant) 2+ (NEGATIVE); URINE UROBILINOGEN Negative (NEGATIVE)
--- NOTE | 2019-11-20 06:25 | NUR ---
Pt arrived to ICU bed 5 from ER via stretcher. ER nurse reported critical Troponin level to ARACELI Lowe on arrival. Pt A/Ox3. Denies any pain. Pt transferred to ICU bed with x1 assist. Steady gait. Pt connected to CRM. SBP 180s. Assessment completed. Pt states she talked to her son on the phone while in ER. Discussed plan of care r/t diagnosis, dr rodriguez and medications. Pt verbalized understanding. Call light in reach .
[2019-11-20] MEDS ORDERED: ASPIRIN 81M81 MG/TA2 PO (06:44)
--- NOTE | 2019-11-20 07:15 | NUR ---
Bedside report given to JNA Rogel. Pt O2 sats in 80s while asleep. Pt placed on 2L/NC and sats now 98-99%.
--- NOTE | 2019-11-20 07:43 | NUR ---
Report received from Alexandria Hook RN and care resumed.
--- NOTE | 2019-11-20 09:55 | NUR ---
Dr Salas notified on increased troponin.
--- NOTE | 2019-11-20 12:24 | NUR ---
Dr Salas in to see pt at this time.
--- NOTE | 2019-11-20 15:28 | NUR ---
Report called to Marah MONTOYA on medical floor. Pt taken on tele by wheelchair to rom 305 with belongings. Family present.
--- NOTE | 2019-11-20 16:39 | NUR ---
Pt up to room 305 with family at bedside. pt sitting in recliner. A&O, independent in room. Pt tearful and stating she is anxious about her condition. Notified Dr. Salas, 1MG ativan PO, verbal order placed. Pt also wanted to change code status. Dr. Salas not currently in hospital and will discuss with pt "tomorrow if not back in tonight". Will update pt and POC.
--- NOTE | 2019-11-20 19:45 | NUR ---
Pt doing well, A&O, independent in room. LWR IV INT flushes w/o complications. Pt on room air at this time, breathing is even and unlabored. NC given for O2 at HS. Pt seems a little better than from earlier, a little less tearful. Pt on tele. Pt has some LE edema 1+. Pulses strong bilaterally. No other concerns expressed.
--- NOTE | 2019-11-20 20:45 | NUR ---
Shift report received from JAN Ewing. At time of assessment, patient is lying awake in bed. She does not show signs of anxiety. Her vital signs are stable, her lungs are clear/diminished and heart sounds are normal with an irregular rhythm. She does not complain of any pain and no other concerns are voiced at this time. Will continue to monitor.
[2019-11-21 05:14] VITALS: BP 176/73; PULSE 77; TEMP 98.5
--- NOTE | 2019-11-21 05:42 | NUR ---
Patient has slept for the majority of the night, complaining of a slight headache in the middle of the night but saying it is not severe enough to take medication for it. She has been wearing 2L oxygen via nasal cannula throughout the night and sats have been high 90's. No other concerns voiced at this time.
[2019-11-21 06:29] LABS: BASO % 0.4 % (0.0-2.0); EOS # 0.2 (0.0-0.7); EOS % 2.6 % (0-4.0); GRAN # 5.4 (1.4-6.5); GRAN % 66.3 % (42.2-75.2); LYMPH # 1.7 (1.2-3.4); LYMPH % 20.4 % (20.0-51.0); MEAN CELL VOLUME 82 fl (80.0-100.0); MEAN CORPUSCULAR HGB CONC 30 g/dl (33.0-37.0); MEAN PLATELET VOLUME 10.2 fl (7.4-10.4); MONO # 0.8 (0.1-0.6); MONO % 9.3 % (1.7-9.3); PLATELET COUNT 180 K/mm3 (130-400); RED BLOOD COUNT 3.32 M/mm3 (4.10-5.30); REDCELL DISTRIBUTION WIDTH-CV 14.2 % (11.5-14.5)
[2019-11-21 06:38] LABS: HEMATOCRIT 27.3 % (37.0-47.0); HEMOGLOBIN 8.3 g/dl (12.5-16.0); MEAN CORPUSCULAR HEMOGLOBIN 25 pg (27.0-31.0)
[2019-11-21 06:39] LABS: CREATININE, serum 3.73 (0.52-1.25); POTASSIUM 3.4 mmol/L (3.4-5.0)
[2019-11-21 07:22] VITALS: BP 150/59; PULSE 78; TEMP 97.6
--- NOTE | 2019-11-21 09:22 | NUR ---
HAZARDOUS WASTE MATERIAL TECHNICIAN informed this nurse that pt states she "isn't feeling well". This nurse in for morning assessment & meds. Pt states she feels nauseous, basin provided, pt mouth breathing & dry heaved a few times. Asked if pt wanted anything for nausea or would be able to tolerate pills, pt doesn't respond, just sits on EOB holding basin. Pt then needed to go to the bathroom. Pt back to EOB & states "it's happening again". Asked for clarification on what pt meant, she doesn't respond for a couple of minutes. Pt then states her "head hurts". Asked pt if she would like something for nausea & headache, pt responded w/ "I don't know ask the doctor". Pt then stated she would like tylenol and something for nausea.
--- NOTE | 2019-11-21 09:48 | NUR ---
Pt sitting on EOB still, tylenol and zofran administered per MAR. Pt not really responding to questions, just sits staring off, shaking and becomes tearful. Hospitalist aware of pt situation, will be in to assess soon.
[2019-11-21 11:06] VITALS: BP 187/85; PULSE 68; TEMP 98.4
--- NOTE | 2019-11-21 11:49 | NUR ---
Pt requesting a snack to hold her over until lunch, pt unable to eat breakfast d/t nausea. Pt received zofran and tylenol. Pt states she feels better, denies anymore nausea. Pt appears better. Pt states that her "episode this morning" involved twitching in her neck and left leg and she was "hearing noises in her head" but it "is hard to describe". Pt tolerated her morning medications. Hospitalist in to assess pt at this time.
--- NOTE | 2019-11-21 16:00 | NUR ---
Pt sitting in bed, finished up lunch. Pts mood seemed better this afternoon. Asked how Pt was doing... denies nausea, states she still has a little bit of a headache. Asked Pt if she wanted anything but she doesn't respond and stares out window. Pt then talks about "I don't know why everyone always says I need to see a psychiatrist. Something is wrong". Pt starts to appear more anxious. Discussed POC w/ pt and the neuro consult. Pt denied any further needs. pt then received phone call.
[2019-11-21 16:31] VITALS: BP 143/53; PULSE 81; TEMP 98.3
--- NOTE | 2019-11-21 18:44 | NUR ---
Pt called out to say she didn't want/like her dinner. This nurse entered pt room, pt sitting in bed, appears tearful, shaky. Pt states she would like yogurt and anti nausea med. No vomiting or emesis at this time. Dietary called to bring up yogurt and zofran PRN administered. Dr. Ramirez in to assess pt prior, pt seems a little anxious after visit. Talked with pt, discussed POC, comfort and reassurance given, attempted to calm pt. Pt seems a little more calm at end of discussion. No further needs at this time.
[2019-11-21 19:09] VITALS: BP 177/76; PULSE 80; TEMP 97.4
--- NOTE | 2019-11-21 20:00 | NUR ---
Pt in bed watching TV. Reports nausea has resolved. Takes HS meds at this time. Provided grahm cracker snack at this time. SL flushed to left wrist without problem. Placed oxygen on at 2L/NC per pt request for sleep. Denies pain.
[2019-11-21 22:54] VITALS: BP 148/61; PULSE 78; TEMP 97.7
[2019-11-22 03:08] VITALS: BP 130/54; PULSE 79; TEMP 98.3
--- NOTE | 2019-11-22 05:55 | NUR ---
TAKES AM MED WITHOUT PROBLEM. PT REPORTS RESTING WELL THIS SHIFT.
--- NOTE | 2019-11-22 07:09 | NUR ---
report to Pamella MONTOYA
[2019-11-22 08:43] VITALS: BP 184/84; PULSE 92; TEMP 98.6
--- NOTE | 2019-11-22 09:30 | NUR ---
MARTIR met with the patient to discuss discharge plan. The patient resides at [facility] for long-term care. She states that she utilizes a walker and that her PCP is Dr. Jerman Choi. The patient does not have advanced directives completed, but she was interested in obtaining a form for DPOA-HC. MARTIR provided. The patient states that her next of kin is her son, Radames Smith (ph#[phone]). The patient plans to return back to [facility] upon discharge. MARTIR presented and explained the Patient Choice Form to the patient. The patient verbalized understanding, signed, and she was provided a copy. MARTIR contacted and faxed updates to Zac at [facility]. MARTIR to continue to follow.
[2019-11-22 12:13] VITALS: BP 148/69; PULSE 76; TEMP 99.1
--- NOTE | 2019-11-22 14:37 | NUR ---
First visit from the english as a second language instructor. No needs right now.
[2019-11-22 17:20] VITALS: BP 167/72; PULSE 76; TEMP 98.1
[2019-11-22 19:31] VITALS: BP 175/75; PULSE 83; TEMP 98
--- NOTE | 2019-11-22 20:12 | NUR ---
Shift report received from JAN Can. At time of assessment patient is reporting "no feeling right" with palpitations and R leg numbness, similar to symptoms she was feeling in ER at admission. BP taken, 177/78. Telemetry notified and they report no recent changes in heart rhythm. Blood glucose taken and it was 187. Patient has hydralazine for SBP >180 so evening medications which include clonidine and bumex were administered to help with BP. Physician was notified and ordered 0.5 mg Ativan Q8 PRN as patient has been experiencing anxiety and this helped her earlier in her hospital stay. She did not appear SOA and upon auscultation her HR was regular and lung sounds clear. 2L of PRN O2 was applied for patient comfort. Will continue to monitor.
[2019-11-23 00:23] VITALS: BP 139/57; PULSE 64; TEMP 97.7
[2019-11-23 03:41] VITALS: BP 133/50; PULSE 64; TEMP 97.7
--- NOTE | 2019-11-23 05:05 | NUR ---
After incident at beginning of shift where patient had palpitations and 177/78 BP, patient has had otherwise uneventful night. After 0.5 mg Ativan administration and bumex/clonidine evening medication administration, patient was able to relax and fall asleep for the majority of the night. 2L O2 is still on and will be removed upon wakening.
[2019-11-23 05:10] LABS: FOLATE (FOLIC ACID) 9.5 ng/mL (>=4.0)
[2019-11-23 07:44] LABS: BASO % 0.5 % (0.0-2.0); EOS # 0.2 (0.0-0.7); EOS % 2.7 % (0-4.0); GRAN # 5.5 (1.4-6.5); GRAN % 63.4 % (42.2-75.2); LYMPH # 1.9 (1.2-3.4); LYMPH % 22.2 % (20.0-51.0); MEAN CELL VOLUME 85 fl (80.0-100.0); MEAN PLATELET VOLUME 10.4 fl (7.4-10.4); MONO # 0.9 (0.1-0.6); PLATELET COUNT 176 K/mm3 (130-400); REDCELL DISTRIBUTION WIDTH-CV 14.4 % (11.5-14.5)
[2019-11-23 07:56] LABS: HEMATOCRIT 26.3 % (37.0-47.0); HEMOGLOBIN 7.8 g/dl (12.5-16.0); MEAN CORPUSCULAR HEMOGLOBIN 25 pg (27.0-31.0)
[2019-11-23 08:02] LABS: CALCIUM 8.9 mg/dL (8.4-10.2); CREATININE, serum 3.92 (0.52-1.25); POTASSIUM 3.4 mmol/L (3.4-5.0)
[2019-11-23 08:31] VITALS: BP 154/65; PULSE 71; TEMP 97.4
[2019-11-23 08:56] LABS: MEAN CORPUSCULAR HGB CONC 30 g/dl (33.0-37.0)
[2019-11-23] MEDS ORDERED: NORVASC 5MG5 MG/TAB PO (09:30)
[2019-11-23] MEDS ORDERED: COREG 3.123.125 MG/T PO (09:30)
[2019-11-23] MEDS ORDERED: ATIVAN 0.50.5 MG/TAB PO (09:31)
[2019-11-23] MEDS ORDERED: ERGOCALCIFER50000 IU PO (09:36)
--- NOTE | 2019-11-23 11:30 | NUR ---
The patient is to discharge today, 11/22, back to [facility] for long-term care. Transportation was scheduled at 1200, via [facility]. SW informed the patient and her RN. They were both in agreeance to the time. No additional needs at this time.
--- NOTE | 2019-11-23 12:48 | NUR ---
PATIENT DC TO [facility] @ 4655. LEFT UNIT VIA ACCOMPANIED BY [facility]ILITY TRANSPORTATION. TRANSFER PAPERWORK SENT WITH TRANSPORTATION. AT TIME OF DC PATIENT AMBULATED WITH STEADY GAIT TO WITHOUT ASSISTANCE. ATTITUDE CALM AND PLEASANT. NO C/O OF PAIN OR DISCOMFORT.
== END 2019-11-23 12:45 | disposition home or self-care (01) ==
LOC: COL.ER 01:26 → ICU 04:34 → MEDICAL 15:29
PROVIDERS: Emergency Medicine; Psychiatry & Neurology Neurology; ADMIT Hospitalist
DX: I16.0 Hypertensive urgency (principal); I25.2 Old myocardial infarction; R79.89 Other specified abnormal findings of blood chemistry; E11.22 Type 2 diabetes mellitus with diabetic chronic kidney disease; I12.9 Hypertensive chronic kidney disease with stage 1 through stage 4 chronic kidney disease, or unspecified chronic kidney disease; D72.829 Elevated white blood cell count, unspecified; N18.4 Chronic kidney disease, stage 4 (severe); E66.9 Obesity, unspecified; F32.9 Major depressive disorder, single episode, unspecified; Z85.59 Personal history of malignant neoplasm of other urinary tract organ; Z79.4 Long term (current) use of insulin; Z79.899 Other long term (current) drug therapy; Z79.82 Long term (current) use of aspirin; Z87.891 Personal history of nicotine dependence; Z88.1 Allergy status to other antibiotic agents; Z86.718 Personal history of other venous thrombosis and embolism
CPT/HCPCS: 99223-AI; 99239; G0378; J0360; J1644; J1815; J2405